=== PATIENT | male | born 1955 | race Caucasian/White ===

== ENCOUNTER 2023-06-15 18:05 | Emergency (ER) | payer MEDICARE, BC ==
[~2023-06-15] VITALS: Ht 165.1 cm; Wt 65.8 kg
[~2023-06-15 18:05] MED LIST: ATOR20TA PO; HYDR12.5 PO
[2023-06-15 21:10] VITALS: BP 145/80; TEMP 98.5; O2SAT 100
== END 2023-06-15 21:11 | disposition home or self-care (01) ==
LOC: ER 18:09
DX: M71.21 Synovial cyst of popliteal space [Baker], right knee (principal); R60.0 Localized edema; M25.561 Pain in right knee; I10 Essential (primary) hypertension; Z60.2 Problems related to living alone
CPT/HCPCS: 93971-TC